=== PATIENT | female | born 1970 | race Caucasian/White ===

== ENCOUNTER 2016-08-22 12:37 | Emergency (ER) | payer SELFPAY ==
[2016-08-22 12:41] VITALS: BP 116/73; BMI 21.7
[2016-08-22 13:26] LABS: BILIRUBIN,URINE NEGATIVE (NEGATIVE); BLOOD/HEMOGLOBIN,URINE 3+ (NEGATIVE); GLUCOSE, URINE NEGATIVE (NEGATIVE); KETONES,URINE NEGATIVE (NEGATIVE); LEUKOCYTE ESTERASE ,URINE 1+ (NEGATIVE); NITRITES,URINE NEGATIVE (NEGATIVE); PROTEIN,URINE NEGATIVE (NEGATIVE); UROBILINOGEN,URINE NORMAL (NORMAL)
--- NOTE | 2016-08-22 13:40 | DR.GENAD ---
HPI - PCP Primary Care Physician: NFD - Complaint/Symptoms Chief Complaint:: PATIENT WANTS TO DETOX OFF OF XANAX AND OPIATES - Nurses notes reviewed Nurses Notes Review: Yes - Source History Provided: Patient - Mode of Arrival Mode of Arrival: Ambulatory - Timing Onset of Chief Complaint: 08/20/16 Came on: Gradually - Duration Duration: Intermittent How lon Duration: Weeks - Location Location: generalized - Severity Severity: Moderate - Modifying Factors Worsens:: drugs - Associated Signs and Symptoms Associated Signs and Symptoms: cough PMH - PMH Past Medical History: No Past Surgical History: No - Family History History of Family Medical Conditions: No - Social History Does patient currently use any type of tobacco product: Yes Have you used tobacco products in the last 12 months: Yes Type of Tobacco Use: Cigarettes Does any household member use tobacco: No Do you use any recreational Drugs:: Yes (XANAX AND OPIATES) Lives With: Other Lives Where: [facility] - infectious screening In the last 2 months have you had wt loss of >10#?: NO Have you had fever, night sweats or hemotysis?: No Have you traveled outside the country in the last 6 months?: No Isolation: Standard ROS - Review of Systems Constitutional: No Symptoms Reported Eyes: No Symptoms Reported ENTM: No Symptoms Reported Respiratoy: Non-Productive Cough Cardiovascular: No Symptoms Reported Gastrointestinal/Abdominal: No Symptoms Reported Genitourinary: No Symptoms Reported Neurological: No Symptoms Reported Musculoskeletal: No Symptoms Reported Integumentary: No Symptoms Reported Hematologic/Lymphatic: No Symptoms Reported Endocrine: No Symptoms Reported Psychiatric: No Symptoms Reported All Other Systems: Reviewed and Negative PE - Vital Signs Vitals: Temperature 98.2 F Pulse Rate 94 Respiratory Rate 18 Blood Pressure 116/73 O2 Sat by Pulse Oximetry 99 - General Limitations: No Limitations General Appearance: Alert, In No Apparent Distress - Head Head Exam: Normal Inspection - Eyes Eye exam: Normal Appearance, EOMI. negative: Scleral Icterus, Conjunctival Injection - ENT ENT Exam: Normal Exam, Normal Oropharynx External Ear Exam: Normal External Inspection - Neck Neck Exam: Normal Inspection, Full ROM, Trachea Midline - Chest Chest Inspection: Normal Inspection - Respiratory Respiratory Exam: Normal Lung Sounds Bilat. negative: Accessory Muscle Use, Respiratory Distress Respiratory Exam: Right Wheezing (mild) - Cardiovascular Cardiovascular Exam: Regular Rate - Abdominal Exam Abdominal Exam: Normal Inspection - Extremities Extremities Exam: Normal Inspection, Full ROM - Back Back Exam: Normal Inspection - Neurologic Neurological Exam: Alert, Oriented X3, CN II-XII Intact - Psychiatric Psychiatric Exam: Normal Mood - Skin Skin Exam: Intact, Normal Color ROR - Labs Reviewed Result Diagrams: 08/22/16 13:26 08/22/16 13:26 Laboratory: WBC 11.3 X10^3/uL (3.6-10.0) H 08/22/16 13:26 RBC 4.71 X10^6/uL (3.5-5.4) 08/22/16 13:26 Hgb 13.5 g/dL (12.0-16.0) 08/22/16 13:26 Hct 41.1 % (36.0-47.0) 08/22/16 13:26 MCV 87.2 fL (80.0-100.0) 08/22/16 13:26 MCH 28.7 pg (27.0-34.0) 08/22/16 13:26 MCHC 32.9 g/dL (33.0-35.0) L 08/22/16 13:26 RDW 14.7 % (11.6-16.5) 08/22/16 13:26 Plt Count 408 X10^3/uL (150.0-450.0) 08/22/16 13:26 MPV 7.5 fL (7.4-11.0) 08/22/16 13:26 Neut % 64.2 % (42.0-75.0) 08/22/16 13:26 Lymph % 26.0 % (21.0-51.0) 08/22/16 13:26 [place] % 8.2 % (0.0-13.0) 08/22/16 13:26 Eos % 0.9 % (0.9-2.9) 08/22/16 13:26 Baso % 0.7 % (0.2-1.0) 08/22/16 13:26 Neut # 7.2 x10^3/uL (2.2-4.8) H 08/22/16 13:26 Lymph # 2.9 X10^3/uL (1.3-2.9) 08/22/16 13:26 [place] # 0.9 x10^3/uL (0.3-0.8) H 08/22/16 13:26 Eos # 0.1 x10^3/uL (0.0-0.2) 08/22/16 13:26 Baso # 0.1 X10^3/uL (0.0-0.1) 08/22/16 13:26 Absolute Nucleated RBC 0.0 /100WBC 08/22/16 13:26 Sodium 142 mmol/L (136-145) 08/22/16 13:26 Corrected Sodium TNP 08/22/16 13:26 Potassium 3.6 mmol/L (3.5-5.1) 08/22/16 13:26 Chloride 103 mmol/L (98-107) 08/22/16 13:26 Carbon Dioxide 31.6 mmol/L (21-32) 08/22/16 13:26 BUN 11 mg/dL (7-18) 08/22/16 13:26 Creatinine 0.69 mg/dL (0.55-1.02) 08/22/16 13:26 Est GFR (MDRD) Af Amer > 60 (>60) 08/22/16 13:26 Est GFR (MDRD) Non-Af > 60 (>60) 08/22/16 13:26 Glucose 94 mg/dL (65-99) 08/22/16 13:26 Calcium 8.8 mg/dL (8.5-10.1) 08/22/16 13:26 Corrected Calcium 9.8 mg/dL (8.5-10.1) 08/22/16 13:26 Total Bilirubin 0.20 mg/dL (0.2-1.0) 08/22/16 13:26 AST 26 Units/L (15-37) 08/22/16 13:26 ALT 31 Units/L (12-78) 08/22/16 13:26 Alkaline Phosphatase 79 Units/L (46-116) 08/22/16 13:26 Total Protein 7.3 g/dL (6.4-8.2) 08/22/16 13:26 Albumin 2.8 g/dL (3.4-5.0) L 08/22/16 13:26 Globulin 4.5 g/dL (2.5-4.5) 08/22/16 13:26 Albumin/Globulin Ratio 0.6 Ratio (1.1-2.1) L 08/22/16 13:26 HCG, Qual Negative <10 mIU/mL 08/22/16 13:10 Specimen Type Clean catch urine 08/22/16 13:07 Urine Color Yellow (YELLOW) 08/22/16 13:07 Urine Appearance Hazy (CLEAR) 08/22/16 13:07 Urine pH 8.0 (5.0 - 8.0) 08/22/16 13:07 Ur Specific [place] 1.015 (1.000-1.030) 08/22/16 13:07 Urine Protein Negative (NEGATIVE) 08/22/16 13:07 Urine Glucose (UA) Negative (NEGATIVE) 08/22/16 13:07 Urine Ketones Negative (NEGATIVE) 08/22/16 13:07 Urine Occult Blood 3+ (NEGATIVE) 08/22/16 13:07 Urine Nitrite Negative (NEGATIVE) 08/22/16 13:07 Urine Bilirubin Negative (NEGATIVE) 08/22/16 13:07 Urine Urobilinogen Normal (NORMAL) 08/22/16 13:07 Ur Leukocyte Esterase 1+ (NEGATIVE) 08/22/16 13:07 Urine RBC 0-2 /HPF (NEGATIVE) 08/22/16 13:07 Urine WBC 0-2 /HPF (NEGATIVE) 08/22/16 13:07 Ur Squamous Epith Cells Moderate /HPF (NEGATIVE) 08/22/16 13:07 Urine Bacteria Trace /HPF (NEGATIVE) 08/22/16 13:07 Urine Mucus Moderate /HPF (NEGATIVE) 08/22/16 13:07 Ur Culture Indicated? No/not indicated 08/22/16 13:07 Salicylates 2.5 mg/dL (2.8-20) L 08/22/16 13:26 Urine Opiates Screen Negative (NEG=<300) 08/22/16 13:07 Urine Methadone Screen Positive (NEG=<300) A 08/22/16 13:07 Acetaminophen 0.0 ug/mL (10-30) L 08/22/16 13:26 Ur Barbiturates Screen Negative (NEG=<200) 08/22/16 13:07 Ur Phencyclidine Scrn Negative (NEG=<25) 08/22/16 13:07 Ur Amphetamines Screen Positive (NEG=<1000) A 08/22/16 13:07 U Benzodiazepines Scrn Positive (NEG=<200) A 08/22/16 13:07 Urine Cocaine Screen Negative (NEG=<300) 08/22/16 13:07 U Marijuana (THC) Screen Positive (NEG=<50) A 08/22/16 13:07 Ethyl Alcohol mg/dL < 3 mg/dL (0-19.9) 08/22/16 13:26 - Diagnosis Discharge Problem: Polysubstance (excluding opioids) dependence - Discharge Plan Condition: Stable - Follow ups/Referrals Follow ups/Referrals: NFD,None [Primary Care Provider] - 3 days - Instructions Additional Instructions: follow up rehab center of choice
[2016-08-22 13:42] LABS: BASOPHILS # (AUTO) 0.1 X10^3/uL (0.0-0.1); BASOPHILS % (AUTO) 0.7 % (0.2-1.0); EOSINOPHILS # (AUTO) 0.1 x10^3/uL (0.0-0.2); EOSINOPHILS % (AUTO) 0.9 % (0.9-2.9); HEMATOCRIT 41.1 % (36.0-47.0); HEMOGLOBIN 13.5 g/dL (12.0-16.0); LYMPHOCYTES # (AUTO) 2.9 X10^3/uL (1.3-2.9); MEAN CORPUSCULAR HEMOGLOBIN 28.7 pg (27.0-34.0); MEAN CORPUSCULAR HGB CONC 32.9 g/dL (33.0-35.0); MEAN CORPUSCULAR VOLUME 87.2 fL (80.0-100.0); MEAN PLATELET VOLUME 7.5 fL (7.4-11.0); MONOCYTES # (AUTO) 0.9 x10^3/uL (0.3-0.8); MONOCYTES % (AUTO) 8.2 % (0.0-13.0); NEUTROPHILS # (AUTO) 7.2 x10^3/uL (2.2-4.8); NEUTROPHILS % (AUTO) 64.2 % (42.0-75.0); PLATELET COUNT 408 X10^3/uL (150.0-450.0); RED BLOOD COUNT 4.71 X10^6/uL (3.5-5.4); RED CELL DISTRIBUTION WIDTH 14.7 % (11.6-16.5); WHITE BLOOD COUNT 11.3 X10^3/uL (3.6-10.0)
[2016-08-22 13:43] LABS: APPEARANCE,URINE HAZY (CLEAR); BACTERIA,URINE TRACE /HPF (NEGATIVE); COLOR,URINE YELLOW (YELLOW); RBC,URINE 0-2 /HPF (NEGATIVE); SQUAMOUS EPITHELIAL CELL,UR MODERATE /HPF (NEGATIVE)
[2016-08-22] MEDS ORDERED: DUONEB 0.5 MG/3 MG NEB ONE (13:43)
[2016-08-22 13:45] LABS: MUCUS,URINE MODERATE /HPF (NEGATIVE)
[2016-08-22 13:46] LABS: SERUM PREGNANCY TEST, QUAL NEGATIVE <10 mIU/mL
[2016-08-22 13:51] LABS: ALANINE AMINOTRANSFERASE 31 Units/L (12-78); ALBUMIN 2.8 g/dL (3.4-5.0); ALKALINE PHOSPHATASE 79 Units/L (46-116); ASPARTATE AMINO TRANSFERASE 26 Units/L (15-37); BLOOD ALCOHOL < 3 mg/dL (0-19.9); BLOOD UREA NITROGEN 11 mg/dL (7-18); CALCIUM 8.8 mg/dL (8.5-10.1); CARBON DIOXIDE 31.6 mmol/L (21-32); CHLORIDE 103 mmol/L (98-107); COR CA(FOR HYPOALB) 9.8 mg/dL (8.5-10.1); CREATININE 0.69 mg/dL (0.55-1.02); GLUCOSE 94 mg/dL (65-99); SODIUM 142 mmol/L (136-145); TOTAL PROTEIN 7.3 g/dL (6.4-8.2); eGFR BLACK RACES > 60 (>60); eGFR NON BLACK RACES > 60 (>60)
[2016-08-22 14:03] LABS: SALICYLATE 2.5 mg/dL (2.8-20)
[2016-08-22] MEDS ORDERED: DUONEB 0.5 MG/3 MG ONE (14:11)
--- NOTE | 2016-08-22 14:24 | RAD ---
HISTORY: Cough and fever Study: PA and lateral views of the chest. Comparison: None. Findings: The cardiomediastinal silhouette is normal. No focal consolidations, pleural effusions or pneumothor ax. Osseous structures demonstrate no acute abnormality. IMPRESSION: 1. No acute cardiopulmonary process. Reported By:
[2016-08-22] MEDS ORDERED: HALDOL INJ IM ONE (17:58)
[2016-08-22] MEDS ORDERED: BENADRYL INJ 50 MG VIAL ONE (17:58)
[2016-08-22] MEDS ORDERED: BENADRYL INJ 50 MG VIAL IM ONE (17:58)
[2016-08-22] MEDS ORDERED: HALDOL INJ ONE (17:59)
== END 2016-08-22 22:15 | disposition home or self-care (01) ==
LOC: ER 12:57
DX: F19.20 Other psychoactive substance dependence, uncomplicated (principal)
CPT/HCPCS: 36415; 71020; 80053; 80307; 80320; 81001; 84703; 85025; 93005; 93010; 94640; 96372; 99283; G0434; G6038; G6039; G6040; J1200; J1630; J7620

== ENCOUNTER 2016-08-23 17:26 | Emergency (ER) | payer SELFPAY ==
[2016-08-23 17:31] VITALS: BMI 21.6
--- NOTE | 2016-08-23 17:38 | DR.SOBA ---
HPI - Time Seen Time seen: 17:37 - Primary Care Physician Primary Care Physician: NFD - Complaints Chief Complaint Doctors Comments: Agree with statement. Patient states that she wants to be detoxed. She has been using multiple drugs but has been denied enrollement due methamphetamine positive andre. Chief Complaint:: PT. C/O SHORTNESS OF BREATH AND THROAT SPASMS. PT'S RIGHT SIDE OF MOUTH HAS BEEN TWITCHING ALL DAY. - Source History Provided: Patient - Mode of Arrival Mode of Arrival: Ambulatory - Timing Onset of Chief Complaint: 08/23/16 <RAFIQ MARIA - Last Filed: 08/24/16 07:45> PMH - PMH Past Medical History: No Past Surgical History: No Surgical History: No History - Family History History of Family Medical Conditions: No - Social History Does patient currently use any type of tobacco product: Yes Have you used tobacco products in the last 12 months: Yes Type of Tobacco Use: Cigarettes Does any household member use tobacco: No Alcohol Use: None Do you use any recreational Drugs:: No Lives With: Family Lives Where: Home - infectious screening In the last 2 months have you had wt loss of >10#?: NO Have you had fever, night sweats or hemotysis?: No Have you traveled outside the country in the last 6 months?: No Isolation: Standard <RAFIQ MARIA - Last Filed: 08/24/16 07:45> ROS - Review of Systems Eyes: No Symptoms Reported ENTM: No Symptoms Reported Respiratoy: No Symptoms Reported Cardiovascular: No Symptoms Reported Gastrointestinal/Abdominal: No Symptoms Reported Genitourinary: No Symptoms Reported Neurological: No Symptoms Reported Musculoskeletal: No Symptoms Reported Integumentary: No Symptoms Reported Hematologic/Lymphatic: No Symptoms Reported Endocrine: No Symptoms Reported Psychiatric: No Symptoms Reported All Other Systems: Reviewed and Negative <RAFIQ MARIA - Last Filed: 08/24/16 07:45> PE - General General Appearance: Alert, In No Apparent Distress - Head Head Exam: Normal Inspection, Atraumatic - Eyes Eye exam: Normal Appearance, PERRL, EOMI - ENT ENT Exam: Normal Exam - Neck Neck Exam: Normal Inspection, Full ROM - Chest Chest Inspection: Normal Inspection - Respiratory Respiratory Exam: Normal Lung Sounds Bilat Respiratory Exam: Bilateral Clear to Auscultation - Cardiovascular Cardiovascular Exam: Regular Rate, Normal Rhythm - Abdominal Exam Abdominal Exam: Normal Inspection, Normal Bowel Sounds Abdominal Tenderness: negative: RUQ, RLQ, LUQ, LLQ, Epigastrium, Suprapubic, Diffuse, Mild, Moderate, Severe, Other - Extremities Extremities Exam: Normal Inspection, Full ROM - Back Back Exam: Normal Inspection, Full ROM - Neurologic Neurological Exam: Alert, Oriented X3, CN II-XII Intact - Psychiatric Psychiatric Exam: Normal Affect, Normal Mood - Skin Skin Exam: Warm, Dry, Intact <RAFIQ MARIA - Last Filed: 08/24/16 07:45> Course - Treatment Treatment: Lorazepam 1mg IM; patient has been w/o incidence throughout the night. - Reevaluation 1st: Improved <RAFIQ MARIA - Last Filed: 08/24/16 07:45> ROR - Labs Reviewed Result Diagrams: 08/24/16 06:10 08/23/16 18:10 <RAFIQ MARIA - Last Filed: 08/24/16 07:45> - Labs Reviewed Result Diagrams: 08/24/16 06:10 08/23/16 18:10 <ARIAS MAYEN - Last Filed: 08/25/16 13:17> - Labs Reviewed Laboratory: WBC 17.2 X10^3/uL (3.6-10.0) H 08/24/16 06:10 RBC 4.73 X10^6/uL (3.5-5.4) 08/24/16 06:10 Hgb 13.7 g/dL (12.0-16.0) 08/24/16 06:10 Hct 40.8 % (36.0-47.0) 08/24/16 06:10 MCV 86.3 fL (80.0-100.0) 08/24/16 06:10 MCH 28.9 pg (27.0-34.0) 08/24/16 06:10 MCHC 33.5 g/dL (33.0-35.0) 08/24/16 06:10 RDW 14.8 % (11.6-16.5) 08/24/16 06:10 Plt Count 434 X10^3/uL (150.0-450.0) 08/24/16 06:10 MPV 7.4 fL (7.4-11.0) 08/24/16 06:10 Neut % 67.1 % (42.0-75.0) 08/24/16 06:10 Lymph % 22.7 % (21.0-51.0) 08/24/16 06:10 [place] % 8.8 % (0.0-13.0) 08/24/16 06:10 Eos % 0.7 % (0.9-2.9) L 08/24/16 06:10 Baso % 0.7 % (0.2-1.0) 08/24/16 06:10 Neut # 11.5 x10^3/uL (2.2-4.8) H 08/24/16 06:10 Lymph # 3.9 X10^3/uL (1.3-2.9) H 08/24/16 06:10 [place] # 1.5 x10^3/uL (0.3-0.8) H 08/24/16 06:10 Eos # 0.1 x10^3/uL (0.0-0.2) 08/24/16 06:10 Baso # 0.1 X10^3/uL (0.0-0.1) 08/24/16 06:10 Absolute Nucleated RBC 0.1 /100WBC 08/24/16 06:10 Sodium 140 mmol/L (136-145) 08/23/16 18:10 Corrected Sodium TNP 08/23/16 18:10 Potassium 3.6 mmol/L (3.5-5.1) 08/23/16 18:10 Chloride 105 mmol/L (98-107) 08/23/16 18:10 Carbon Dioxide 27.6 mmol/L (21-32) 08/23/16 18:10 BUN 15 mg/dL (7-18) 08/23/16 18:10 Creatinine 0.76 mg/dL (0.55-1.02) 08/23/16 18:10 Est GFR (MDRD) Af Amer > 60 (>60) 08/23/16 18:10 Est GFR (MDRD) Non-Af > 60 (>60) 08/23/16 18:10 Glucose 103 mg/dL (65-99) H 08/23/16 18:10 Calcium 8.9 mg/dL (8.5-10.1) 08/23/16 18:10 Corrected Calcium 9.8 mg/dL (8.5-10.1) 08/23/16 18:10 Total Bilirubin 0.20 mg/dL (0.2-1.0) 08/23/16 18:10 AST 93 Units/L (15-37) H 08/23/16 18:10 ALT 86 Units/L (12-78) H 08/23/16 18:10 Alkaline Phosphatase 95 Units/L (46-116) 08/23/16 18:10 Total Protein 7.2 g/dL (6.4-8.2) 08/23/16 18:10 Albumin 2.9 g/dL (3.4-5.0) L 08/23/16 18:10 Globulin 4.3 g/dL (2.5-4.5) 08/23/16 18:10 Albumin/Globulin Ratio 0.7 Ratio (1.1-2.1) L 08/23/16 18:10 Specimen Type Clean catch urine 08/23/16 18:25 Urine Color Yellow (YELLOW) 08/23/16 18:25 Urine Appearance Clear (CLEAR) 08/23/16 18:25 Urine pH 6.0 (5.0 - 8.0) 08/23/16 18:25 Ur Specific [place] 1.020 (1.000-1.030) 08/23/16 18:25 Urine Protein 1+ (NEGATIVE) 08/23/16 18:25 Urine Glucose (UA) Negative (NEGATIVE) 08/23/16 18:25 Urine Ketones 2+ (NEGATIVE) 08/23/16 18:25 Urine Occult Blood 2+ (NEGATIVE) 08/23/16 18:25 Urine Nitrite Negative (NEGATIVE) 08/23/16 18:25 Urine Bilirubin Negative (NEGATIVE) 08/23/16 18:25 Urine Urobilinogen Normal (NORMAL) 08/23/16 18:25 Ur Leukocyte Esterase Negative (NEGATIVE) 08/23/16 18:25 Urine RBC Cancelled 08/23/16 18:14 Urine WBC Cancelled 08/23/16 18:14 Ur Squamous Epith Cells Cancelled 08/23/16 18:14 Ur Transition Epith Cell Cancelled 08/23/16 18:14 Ur Renal Epithelial Cell Cancelled 08/23/16 18:14 Calcium Oxalate Crystal Cancelled 08/23/16 18:14 Cystine Crystals Cancelled 08/23/16 18:14 Uric Acid Crystals Cancelled 08/23/16 18:14 Triple Phos Crystals Cancelled 08/23/16 18:14 Tyrosine Crystals Cancelled 08/23/16 18:14 Other Crystals Cancelled 08/23/16 18:14 Amorphous Sediment Cancelled 08/23/16 18:14 Urine Bacteria Cancelled 08/23/16 18:14 Hyaline Casts Cancelled 08/23/16 18:14 Granular Casts Cancelled 08/23/16 18:14 Fine Granular Casts Cancelled 08/23/16 18:14 Coarse Granular Casts Cancelled 08/23/16 18:14 WBC Casts Cancelled 08/23/16 18:14 Other Casts Cancelled 08/23/16 18:14 Urine Mucus Cancelled 08/23/16 18:14 Urine Trichomonas Cancelled 08/23/16 18:14 Urine Yeast Cancelled 08/23/16 18:14 Urine Sperm Cancelled 08/23/16 18:14 Ur Culture Indicated? Cancelled 08/23/16 18:14 Urinalysis Comment Dip only ordered 08/23/16 18:25 Urine Opiates Screen Negative (NEG=<300) 08/23/16 18:14 Urine Methadone Screen Positive (NEG=<300) A 08/23/16 18:14 Ur Barbiturates Screen Negative (NEG=<200) 08/23/16 18:14 Ur Phencyclidine Scrn Negative (NEG=<25) 08/23/16 18:14 Ur Amphetamines Screen Positive (NEG=<1000) A 08/23/16 18:14 U Benzodiazepines Scrn Positive (NEG=<200) A 08/23/16 18:14 Urine Cocaine Screen Negative (NEG=<300) 08/23/16 18:14 U Marijuana (THC) Screen Positive (NEG=<50) A 08/23/16 18:14 (ARIAS AMYEN) <RAFIQ MARIA - Last Filed: 08/24/16 07:45> <ARIAS MAYEN - Last Filed: 08/25/16 13:17> - Diagnosis Discharge Problem: multi drug abuse - Discharge Plan Disposition: 01 HOME, SELF-CARE Condition: Stable - Follow ups/Referrals Follow ups/Referrals: NFD,None [Primary Care Provider] - 2 days - Instructions Instructions: Substance Use Disorder Additional Instructions: RETURN TO ED IF WORSE. FOLLOW UP WITH MENTAL HEALTH THIS WEEK
[2016-08-23 18:16] LABS: BASOPHILS # (AUTO) 0.2 X10^3/uL (0.0-0.1); BASOPHILS % (AUTO) 1.2 % (0.2-1.0); EOSINOPHILS # (AUTO) 0.1 x10^3/uL (0.0-0.2); EOSINOPHILS % (AUTO) 0.3 % (0.9-2.9); HEMOGLOBIN 13.5 g/dL (12.0-16.0); LYMPHOCYTES % (AUTO) 16.4 % (21.0-51.0); MEAN CORPUSCULAR HEMOGLOBIN 28.6 pg (27.0-34.0); MEAN CORPUSCULAR VOLUME 86.7 fL (80.0-100.0); MEAN PLATELET VOLUME 7.2 fL (7.4-11.0); MONOCYTES # (AUTO) 1.2 x10^3/uL (0.3-0.8); MONOCYTES % (AUTO) 6.7 % (0.0-13.0); NEUTROPHILS # (AUTO) 13.8 x10^3/uL (2.2-4.8); NEUTROPHILS % (AUTO) 75.4 % (42.0-75.0); PLATELET COUNT 415 X10^3/uL (150.0-450.0); RED BLOOD COUNT 4.73 X10^6/uL (3.5-5.4); RED CELL DISTRIBUTION WIDTH 14.8 % (11.6-16.5); WHITE BLOOD COUNT 18.3 X10^3/uL (3.6-10.0)
[2016-08-23 18:29] LABS: ALANINE AMINOTRANSFERASE 86 Units/L (12-78); ALBUMIN 2.9 g/dL (3.4-5.0); ALKALINE PHOSPHATASE 95 Units/L (46-116); ASPARTATE AMINO TRANSFERASE 93 Units/L (15-37); BLOOD UREA NITROGEN 15 mg/dL (7-18); CALCIUM 8.9 mg/dL (8.5-10.1); CARBON DIOXIDE 27.6 mmol/L (21-32); CHLORIDE 105 mmol/L (98-107); COR CA(FOR HYPOALB) 9.8 mg/dL (8.5-10.1); CREATININE 0.76 mg/dL (0.55-1.02); GLUCOSE 103 mg/dL (65-99); SODIUM 140 mmol/L (136-145); TOTAL PROTEIN 7.2 g/dL (6.4-8.2); eGFR BLACK RACES > 60 (>60); eGFR NON BLACK RACES > 60 (>60)
[2016-08-23 18:29] LABS: BILIRUBIN,URINE NEGATIVE (NEGATIVE); BLOOD/HEMOGLOBIN,URINE 2+ (NEGATIVE); GLUCOSE, URINE NEGATIVE (NEGATIVE); KETONES,URINE 2+ (NEGATIVE); LEUKOCYTE ESTERASE ,URINE NEGATIVE (NEGATIVE); NITRITES,URINE NEGATIVE (NEGATIVE); PROTEIN,URINE 1+ (NEGATIVE); UROBILINOGEN,URINE NORMAL (NORMAL)
[2016-08-23 18:31] LABS: APPEARANCE,URINE CLEAR (CLEAR); COLOR,URINE YELLOW (YELLOW)
[2016-08-23] MEDS ORDERED: VALIUM INJ IM ONE (18:47)
[2016-08-23] MEDS ORDERED: VALIUM INJ ONE (18:50)
[2016-08-23] MEDS ORDERED: ATIVAN INJ 2 MG VIAL IM ONE (18:53)
[2016-08-23] MEDS ORDERED: ATIVAN INJ 2 MG VIAL ONE (18:54)
[2016-08-24 06:04] VITALS: BP 112/72
[2016-08-24 06:29] LABS: BASOPHILS # (AUTO) 0.1 X10^3/uL (0.0-0.1); BASOPHILS % (AUTO) 0.7 % (0.2-1.0); EOSINOPHILS # (AUTO) 0.1 x10^3/uL (0.0-0.2); EOSINOPHILS % (AUTO) 0.7 % (0.9-2.9); HEMATOCRIT 40.8 % (36.0-47.0); HEMOGLOBIN 13.7 g/dL (12.0-16.0); LYMPHOCYTES # (AUTO) 3.9 X10^3/uL (1.3-2.9); LYMPHOCYTES % (AUTO) 22.7 % (21.0-51.0); MEAN CORPUSCULAR HEMOGLOBIN 28.9 pg (27.0-34.0); MEAN CORPUSCULAR HGB CONC 33.5 g/dL (33.0-35.0); MEAN CORPUSCULAR VOLUME 86.3 fL (80.0-100.0); MEAN PLATELET VOLUME 7.4 fL (7.4-11.0); MONOCYTES # (AUTO) 1.5 x10^3/uL (0.3-0.8); MONOCYTES % (AUTO) 8.8 % (0.0-13.0); NEUTROPHILS # (AUTO) 11.5 x10^3/uL (2.2-4.8); NEUTROPHILS % (AUTO) 67.1 % (42.0-75.0); PLATELET COUNT 434 X10^3/uL (150.0-450.0); RED BLOOD COUNT 4.73 X10^6/uL (3.5-5.4); RED CELL DISTRIBUTION WIDTH 14.8 % (11.6-16.5); WHITE BLOOD COUNT 17.2 X10^3/uL (3.6-10.0)
[2016-08-24] MEDS ORDERED: ATIVAN INJ 2 MG VIAL IM ONE ×2 (07:46→07:47)
[2016-08-24] MEDS ORDERED: ATIVAN INJ 2 MG VIAL ONE (07:47)
== END 2016-08-24 08:38 | disposition home or self-care (01) ==
LOC: ER 17:34
DX: F19.10 Other psychoactive substance abuse, uncomplicated (principal)
CPT/HCPCS: 36415; 80053; 80307; 81003; 85025; 93005; 93010; 96372; 99282; G0434; J2060; J3360